=== PATIENT | female | born 1955 | race Caucasian/White ===

== ENCOUNTER 2017-07-13 05:31 | Inpatient (IN) | payer OTHER ==
--- NOTE | 2017-07-06 14:59 | PCM.ANEPRE ---
Anesthesia Pre-Op Review Reason for Review: GENO + 6/8 Anesthesia Recommendations: Proceed with Procedure Additional Comments Patient with STOP-BANG of 6. Scheduled for sleep study but planning to reschedule due to conflict with surgery. Likely okay to proceed but will need evaluation on day of surgery and will possibly need to be monitored overnight in hospital. Will use GENO protocol. Chart Reviewed by: Bladimir Mccullough MD Jul 06, 2017 14:59
[~2017-07-13] VITALS: Ht 157.5 cm; Wt 97.0 kg
[2017-07-13] VITALS (17 sets, daily range): BP systolic 103–176; BP diastolic 60–109; PULSE 66–90; RESP 9–20; O2SAT 94–100
[~2017-07-13 05:31] MED LIST: DICL100G26 TOPICAL; FLUO15CR33 TOPICAL; LISI-567 PO; Lactated Ringer's 1,000 ML IV ONE; NAPR375T4 PO; OMEP40CA36 PO; TRAM50TA2 PO; TRET20CR14 TP
[2017-07-13] MEDS ORDERED: CeFAZolin 2 Gm/50 mL D5W Duplex Bag IV ONE (05:45)
[2017-07-13] MEDS ORDERED: IBUP100T47 PO (05:55)
[2017-07-13] MEDS ORDERED: Vancomycin Inj 1,250 MG in 0.9% Sodium Chloride 250 ML IV ONE ×2 (06:00→16:30)
[2017-07-13] MEDS ORDERED: Bupivacaine Liposome 1.3% 20 mL Inj INFILTRATE ONE ×2 (06:00→08:35)
[2017-07-13] MEDS ORDERED: CeFAZolin Inj 2 GM in IV Premix 1 EACH IV ONE (06:00)
[2017-07-13] MEDS ORDERED: Gentamicin 40 mg/mL 2 mL Inj IRRIGATION ONE (08:00)
[2017-07-13] MEDS ORDERED: Lactated Ringer's 500 ML IV PRN (08:16)
[2017-07-13] MEDS ORDERED: Lactated Ringer's 1,000 ML IV SCH (08:16)
--- NOTE | 2017-07-13 08:16 | PCM.HPANE ---
Patient Data Date of Service: Jul 13, 2017 (0710) Surgeon Admitting Provider: Attending Provider:Keaton Cerrato MD Primary Care Physician:Pierce Marcelo MD Other Provider:Kurt Martin Anesthesia Reason for Visit Right Knee Arthritis Ht/WT & BMI Height (Feet): 5 Height (Inches): 2.00 Weight (Kilograms): 90.3 Body Mass Index 36.00 Allergies Coded Allergies: No Known Allergies (Unverified , 07/03/17) Past Anesthesia History Anesthesia History: Denies:: Abnormal Airway, Anesthesia Reactions (spinal only with childbirth), Difficult Intubation, Fam Anesthesia Reaction, Fam Malignant Hypertherm, Malignant Hyperthermia Diabetes History Hx Diabetes?: No MRSA MRSA: No Medications Hypertension Medication: Yes Home Meds Incl Beta Axel: No Reported Medications Ibuprofen (Advil)100 Mg [id number] Mg PO 07/13/17 Tretinoin 20 Gm Cream..g.20 Gm TP HS 07/03/17 Tramadol 50 Mg [id number] Mg PO Q4H PRN For Pain Ref 0 07/03/17 Omeprazole 40 Mg Capsule.dr40 Mg PO DAILY Ref 0 07/03/17 Naproxen 375 Mg Tablet.dr375 Mg PO BID PRN For Pain Ref 0 07/03/17 Lisinopril 20 Mg [id number] Mg PO DAILY 30 Days Ref 0 07/03/17 Fluocinolone 0.01% Cream 60 Applic/15 Gm Cream1 Applic TOPICAL BID Ref 0 07/03/17 Diclofenac Gel 100 Gm Tube1 Applic TOPICAL QID PRN For Pain #1 TUBE 07/03/17 History History of ENT Problems?: No HEENT History: Denies:: Abnormal Airway Cataracts Difficult Intubation Dysphagia Glaucoma Hearing Problem Sinus Problem TMJ Denture Type: Partial- Upper Teeth Condition: Within Normal Limits Hx of Heart Problems?: Yes Cardiovascular History: Positive for:: Hypertension Denies:: AICD Atrial Fibrillation Cardiac Surgery Chest Pain Congestive Heart Failure Edema Heart Murmur Irregular Heartbeat Pacemaker Peripheral Vascular Rheumatic Fever Hx of Respiratory Problem?: No Respiratory History: Denies:: Asthma COPD Emphysema Pneumonia (one occasion - two years ) Tuberculosis Use of C-PAP Machine (GENO+, sleep study not yet scheduled ) Hx Neurologic Problems?: No Neurological History: Denies:: Alzheimer's Disease CVA Headaches Multiple Sclerosis Parkinson's Disease Seizures Hx of GI Problems?: Yes Hx of Problems?: No Genitourinary History: Denies:: Kidney Stones Urinary Tract Infection Female Hx: Denies:: Currently (post menopausal ) Problems with Breasts? Skin History: Denies:: History Skin Disorders? Pressure Ulcers Hx Musculoskeletal Problems?: Yes Musculoskeletal History: Positive for:: Degenerative Joint Osteoarthritis Denies:: Back Injury Fibromyalgia Myasthenia Gravis Systemic Lupus Hx of Psycho/Social Problems?: No Psycho Social History: Denies:: Anxiety Hx Depression Hx Surgeries?: No Hx Any Other Health Problems?: Yes Other History: Denies:: Cancer Thyroid Disease History Blood Transfusions: Positive for:: Accept Blood Products? Denies:: Blood Transfusions Hx Diabetes: No Hx Alcohol Use: NoHx Substance Use: NoHave You Smoked inLast 12 mo: No Stop/Bang S-Snoring: Do You Snore Loudly: Yes T-Tired: feel tired, fatigued: Yes O-Obsered: Observed not breath: Yes P-Blood Pressure: treated: Yes B- Body Mass Index > 35 kg/m2: Yes A- Age over 50: Yes N- Neck Large Circumference: No G- Gender Male: No GENO Total Score: 6 Risk Assessment Category Category 1A: Patient has history of documented sleep apnea, and HAS NOT received any narcotic, sedative or anesthesia administration during this stay. Category 1B: Patient has history of documented sleep apnea, and HAS received any narcotic , sedative or anesthesia administration during this stay Category 2: Patient has SUSPECTED Obstructive Sleep Apnea, and HAS received any narcotic , sedative or anesthesia administration during this stay. Category 3: Patient has SUSPECTED Obstructive Sleep Apnea and HAS NOT received narcotic, sedative or anesthesia administration during this stay. Category 4: Outpatient in Procedural Areas with known sleep apnea or who screen positive for High Risk via the STOP/BANG questionnaire. Exam Exam Vital Signs Vital Signs Date Time Temp Pulse Resp B/P Pulse Ox O2 Delivery O2 Flow Rate FiO2 07/13/17 06:10 36.8 88 18 176/109 95 Room Air General Appearance: Alert, Oriented X3, Cooperative, No Acute Distress HEENT/AIRWAY: MP 3 Lungs: Clear to Auscultation Heart: Exam Unremarkable Meds/Labs/Diagnostics Admission Meds Current Medications Vancomycin HCl 1250 mg/Sodium Chloride 250 ml @ 166.667 mls/hr PREOP ONCE IV Last administered on 07/13/17t 06:13; Start 07/13/17 at 06:00; Stop 07/13/17 at 07:29; Status DC Lactated Ringer's (Lr) 1,000 ml @ 120 mls/hr Q8H20M ONCE IV Last administered on 07/13/17t 05:38; Start 07/13/17 at 05:00; Stop 07/13/17 at 13:19 Plan Impression Patient chart reviewed, patient interviewed and anesthestic plan with risks, benefits, and alternatives discussed, and informed consent obtained. ASA Physical Status: ASA2 Mod Systemic Disease Anesthetic Plan: Regional Block, SAB Bene/Risks/Altern/Consents: Yes HP Complete Prior to Induction: Yes Isma Resendez MD Jul 13, 2017 08:16
[2017-07-13] MEDS ORDERED: Phenylephrine 10,000 mCg/mL Inj IVPUSH PRN (08:20)
[2017-07-13] MEDS ORDERED: Dexamethasone 4 mg/mL Inj IVPUSH PRN (08:20)
[2017-07-13] MEDS ORDERED: fentaNYL-PF 50 mCg/mL 2 mL Inj IVPUSH PRN (08:20)
[2017-07-13] MEDS ORDERED: EPHEDrine Sulfate 50 mg/mL Inj IVPUSH PRN (08:20)
[2017-07-13] MEDS ORDERED: Ondansetron 2 mg/mL 2 mL Inj IVPUSH PRN (08:20)
[2017-07-13] MEDS ORDERED: Atropine 0.4 mg/mL Inj IVPUSH PRN (08:20)
[2017-07-13] MEDS ORDERED: HYDROmorphone 1 mg/mL Inj IVPUSH PRN (08:20)
[2017-07-13] MEDS ORDERED: MetoCLOpramide 5 mg/mL 2 mL Inj IVPUSH PRN (08:20)
[2017-07-13] MEDS ORDERED: Bupivacaine-MPF 0.5% W/EPI 30 mL Inj INFILTRATE ONE (08:24)
[2017-07-13] MEDS ORDERED: Lactated Ringer's 1,000 ML IV ONE (08:59)
[2017-07-13] MEDS ORDERED: Vancomycin Dose per Pharmacist XX ONE (09:00)
[2017-07-13] MEDS ORDERED: HYDROcodone-APAP 5-325 mg Tablet PO PRN (09:00)
[2017-07-13] MEDS ORDERED: fentaNYL-PF 50 mCg/mL 2 mL Inj ONE (09:37)
[2017-07-13] MEDS ORDERED: Propofol 10,000 mCg/mL 20 mL Inj ONE (09:37)
[2017-07-13] MEDS ORDERED: Phenylephrine/NS 100 mCg/mL 10 mL Syringe IVPUSH ONE (09:37)
[2017-07-13] MEDS ORDERED: Bupivacaine-MPF 0.75% 30 mL Inj ONE (09:37)
[2017-07-13] MEDS ORDERED: EPHEDrine/NS 5 mg/mL 5 mL Syringe ONE (09:37)
--- NOTE | 2017-07-13 10:07 | PCM.ANEP1 ---
Post Anesthesia PACU Phase 1 Assessment Vital Signs Vital Signs Date Time Temp Pulse Resp B/P Pulse Ox O2 Delivery O2 Flow Rate FiO2 07/13/17 10:00 74 13 117/63 98 Nasal Cannula 2 07/13/17 09:45 72 9 113/66 98 Nasal Cannula 2 07/13/17 09:35 36.1 81 15 119/64 97 Room Air 07/13/17 09:30 78 15 103/60 100 Simple Mask 8 07/13/17 09:25 89 14 112/66 100 Simple Mask 8 07/13/17 09:24 11 94 07/13/17 09:21 36.5 90 11 111/62 100 Simple Mask 8 07/13/17 06:10 36.8 88 18 176/109 95 Room Air Anesthetic Administered: Regional Block, SAB Level of Alertness: Awake, talking Pain: No Nausea or Vomiting: No CV Function & Hydration Stable: Yes Airway Device: Oxygen Delivery: Simple Mask Lungs: Clear to Auscultation Dermatome Level: T2 ([place]) PACU Phase 2 Assessment Complications: No Patient Instructions Provided: N/A Isma Resendez MD Jul 13, 2017 10:07
--- NOTE | 2017-07-13 12:23 | NUR ---
Post op Transfer to [facility] room 1027 from PACU at 11:15 via bed. Report received from Kaz. Pt alert and oriented, sats upper 90s on 2L nc. Numb from upper thighs down. R luz CDI. Toes pink and warm, brisk cap refill. Denies pain and nausea, tolerates water. IVF infusing.
--- NOTE | 2017-07-13 13:00 | DRSVH ---
PROCEDURE: X-RAY RIGHT KNEE, ONE OR TWO VIEWS ([id number]) INDICATIONS: CHECK ALIGNMENT TECHNIQUE: 3 (s) of the knee acquired. COMPARISON: None. FINDINGS: Bones: Patient is status post knee joint arthroplasty. Hardware components are in expected position s. Visualized bony structures are intact. Soft tissues: Overlying postoperative changes are noted. IMPRESSION: Normal alignment after right total knee arthroplasty. A surgical drain overlies the oper ative bed. Dictated by: Deni Hobson M.D. on 07/13/2017 at 12:58 Approved by: Deni Hobson M.D. on 07/13/2017 at 12:59
--- NOTE | 2017-07-13 15:31 | NUR ---
Evaluation completed. Please go to "Notes" then click on "Assessments and Notes" (bottom left corner of screen). Then select appropriate discipline tab on top of screen.
--- NOTE | 2017-07-13 16:23 | NUR ---
Activity Up to BS, knee buckled during transfer. 3 person assist back to bed from BSC. Pt agrees to use bedpan/bedrest until physical therapy sees her again tomorrow.
[2017-07-13] MEDS: oxyCODONE-Acetamin 5-325 mg Tablet PO PRN ×2 (17:57→23:58)
[2017-07-13] MEDS: CeFAZolin Inj 2 GM in IV Premix 1 EACH IV SCH (18:18)
[2017-07-14] VITALS (9 sets, daily range): BP systolic 121–185; BP diastolic 74–120; PULSE 69–85; RESP 16–20; O2SAT 93–99
[2017-07-14] MEDS ORDERED: 0.9% Sodium Chloride 250 ML ONE (01:08)
[2017-07-14] MEDS: CeFAZolin Inj 2 GM in IV Premix 1 EACH IV SCH (02:27)
--- NOTE | 2017-07-14 04:24 | OP ---
[address] [address] OPERATIVE REPORT PATIENT: CESAR GUEVARA : 1955 MR#: [id number] ADMIT: 07/13/2017 JOB ID: [id number] DATE OF SURGERY: 07/13/2017 PREOPERATIVE DIAGNOSIS(ES): Advanced osteoarthritis, right knee. POSTOPERATIVE DIAGNOSIS(ES): Advanced osteoarthritis, right knee. PROCEDURE: Right total knee replacement. SURGEON: Keaton Cerrato MD FOOD PRESERVATION SCIENTIST: Xenia Liu PA-C. Equities Analyst required due to the major complexity of the operation. INDICATIONS: This patient has severe osteoarthritis with significant limitation of symptoms uncontrolled by conservative treatment. PROCEDURE: The patient was prepped and draped in the usual sterile fashion. An anteromedial approach made to the knee and the patella was subluxed laterally, cut transversely, sized to a 29. Drill holes were made. A patellar protection plate utilized. Drill hole placed in the distal femur 5 degree valgus distal femoral cut was made. The femur was sized to a 6 chamfer block fixed in appropriate position. Rotation, drill holes, and chamfer cuts were made. Tibia was cut with the extramedullary tool sized to an E. Trial reduction was performed. A 10 mm polyethylene was chosen. Excellent alignment, soft tissue tracking was achieved with this. All meniscal tissue and osteophytes were removed. Pressurized lavage was followed by pressurized cementation. Excess cement was removed during the curing process. Final construct was assembled. Deep closure over a Hemovac drain with #2 Quill deep followed by 2-0 Vicryl, 3-0, and a 4-0 intracuticular stitch. Patient tolerated procedure well. There were no complications.
[2017-07-14] MEDS: oxyCODONE-Acetamin 5-325 mg Tablet PO PRN ×5 (04:36→21:19)
--- NOTE | 2017-07-14 05:26 | NUR ---
HTN / mobility B/P increased through night, pt feels asymptomatic; am dose of Lisinopril given early per pt request. Day shift will recheck and follow up with Md if needed. Pain well controlled with block and prn Percocet. Pt has not been out of bed tonight related to knee buckling yesterday, PT to follow. Hourly rounding ongoing.
[2017-07-14] MEDS: Pantoprazole 40 mg ER24 Tablet PO SCH (06:15)
--- NOTE | 2017-07-14 09:08 | PCM.PNORTH ---
Subjective Date of Service: Jul 14, 2017 Visit Information: Reason for Visit Right Knee Arthritis Surgery/Surgery Date R TKA 07/13/17 Post-Op Day # 1 Date of Admission: Jul 13, 2017 at 11:17 Hospital Day # Subjective Patient states she is not having pain and expresses that she is very anxious about this. She is worried she will not be able to support herself as she was not able to weightbear on the affected extremity yesterday. She also expresses concerns about a sudden onset of pain when the block wears off. Patient is on scheduled pain medications to avoid a sudden flare up on pain. Postop General: No Complaints, No Shortness of Breath, No Chest Pain, Good Appetite Pain Management: PO Objective Exam Objective Patient sitting up in bed Vital Signs and I/O Vital Sign - Last Date Time Temp Pulse Resp B/P Pulse Ox O2 Delivery O2 Flow Rate FiO2 07/14/17 08:38 36.7 82 17 185/120 96 Room Air 07/14/17 06:15 1.00 07/13/17 12:28 99 Intake and Output 07/13/17 07/13/17 07/14/17 Cumulative From/Thru 15:00 23:00 07:00 07/03/17 16:52 - 07/14/17 06:15 Intake Total 660 ml 1318 ml 1047 ml 4275 ml Output Total 55 ml 555 ml 490 ml 1100 ml Balance 605 ml 763 ml 557 ml 3175 ml Intake Oral 500 ml 450 ml 950 ml IV Total 660 ml 818 ml 597 ml 3325 ml Output Urine Total 550 ml 470 ml 1020 ml Drainage Total 5 ml 20 ml 25 ml Estimated Blood Loss 55 ml 55 ml # Bowel Movements 0 0 General Appearance: Alert, Oriented X3, Cooperative, No Acute Distress Extremities: No Compartment Syndrom Noted, Thigh & Calf Soft/Nontender Postop Sensory Motor: Distal Motor Intact, Movement in Toes SURGICAL WOUND : Wound Location/Description Perioperative dressings c/d/i Drain Location Body Site: Knee Incision General Appearance: No Direct Observation Wound Drainage Type: Hemovac Activity: Ambulate with PT (WBAT c FWW) Assessment & Plan Impression POD#1 right total knee arthroplasty Problems: Plan Patient has been hypertensive. She takes lisinopril and received her medication this morning. Will continue to monitor. Weightbearing: Weightbearing as tolerated with a front wheeled walker. DVT prophylaxis: Aspirin 81 mg twice a day 6 weeks Physical therapy for transfers, progressive ambulation, strengthening Wound care: Perioperative dressing will be changed to an island dressing with application of compression stockings tomorrow Analgesia: Continue oral pain management. Discharge plan: Discharge home in 1-2 days. Start outpatient physical therapy next week. Follow-up plan: In 2 weeks at [facility] with SRIRAM for wound check and at [address] Cerrato with x-rays Xenia Liu PA-C Jul 14, 2017 09:08
--- NOTE | 2017-07-14 09:33 | NUR ---
HTN Asymptomatic. PA aware. No new orders at this time.
[2017-07-14] MEDS: hydrOXYzine Pamoate 25 mg Capsule PO PRN ×2 (11:45→16:01)
--- NOTE | 2017-07-14 18:09 | NUR ---
Pain Management Patient pain not controlled with 1 tab percocet following PT and nerve block wearing off, added tramadol then Vistaril. Pain adequately managed with staggered doses of 2 percocet, 1 tramadol, 1 Vistaril. No sleepiness or drowsiness noted patient on continuous pulse ox. Call light within reach, bed in lowest and locked position. Will continue to monitor.
[2017-07-15] MEDS: oxyCODONE-Acetamin 5-325 mg Tablet PO PRN ×4 (03:06→15:45)
--- NOTE | 2017-07-15 03:52 | NUR ---
activity/GENO pt has not been out of bed this shift. she is weary to attempt to get out of bed without PT. she has used a bedpan and is able to lift herself to get on the bedpan and turn herself without assistance. pt has required 2L of 02 via an oxymask to keep her 02 levels greater then 92%. nurse has observed so periods of apnea and pulse ox showed her dropping down into the 70s frequently while sleeping. nurse provided teaching on GENO and risks. pain has been well controlled with percocet and tramadol. pt wanted to hold off on vistaril this shift as she said something was making her feel dizzy and she wanted a trial without the vistaril to determine if it was the cause. pt has complained of no dizziness this shift. bed in low position, call light within reach. care continues.
[2017-07-15 05:26] VITALS: BP 133/75; PULSE 84; RESP 16; O2SAT 99
[2017-07-15] MEDS: Pantoprazole 40 mg ER24 Tablet PO SCH (06:29)
--- NOTE | 2017-07-15 09:21 | NUR ---
Social Work- Screening Data: EMR reviewed. Pt is a 84 year old female admitted for right TKA. Pt is POD 2. Pt's insurance is [facility]. Ortho is primary on pt. Pt's PCP is Pierce Marcelo MD. SW met with pt at bedside, explained d/c planning and SW role. Pt resides in [place] with her adult son. Pt's son Luda Huber, is designated contact center specialist for d/c planning. Pt is Independent at baseline with ADLs and self-care. Pt drives. Pt has no DPOA on file and pt declined updated paperwork-- she will have her sports attorney write up a new DPOA. Pt has a cane and walker for use at home. Pt is likely to progress to d/c home, son to transport via POV. No d/c needs anticipated. SW will continue to follow. Assessment: Pt who is independent at baseline. Plan: Pt likely to progress with PT to be able to d/c home with son to transport via POV. No d/c needs identified at this time. SW will continue to follow. CATHLEEN Rodriguez
[2017-07-15] MEDS: hydrOXYzine Pamoate 25 mg Capsule PO PRN (10:10)
[2017-07-15 12:30] VITALS: BP 102/67; PULSE 95; RESP 18; O2SAT 93
--- NOTE | 2017-07-15 13:14 | PCM.PNORTH ---
Subjective Date of Service: Jul 15, 2017 Visit Information: Reason for Visit Right Knee Arthritis Surgery/Surgery Date R TKA 07/13/17 Post-Op Day # 2 Date of Admission: Jul 13, 2017 at 11:17 Hospital Day # Subjective Patient states she has been very nauseous whenever she takes one of her meds. She does not know which one. When I went over her med list with her, she stated that all of the meds were wrong and she only takes Lisinopril and Advil while at home. Postop General: No Complaints, No Shortness of Breath, No Chest Pain, Good Appetite Pain Management: PO Objective Exam Objective Patient sitting up in bed Vital Signs and I/O Vital Sign - Last Date Time Temp Pulse Resp B/P Pulse Ox O2 Delivery O2 Flow Rate FiO2 07/15/17 05:26 36.4 84 16 133/75 99 OxyMask 2.00 07/13/17 12:28 99 Intake and Output 07/14/17 07/14/17 07/15/17 Cumulative From/Thru 15:00 23:00 07:00 07/03/17 16:52 - 07/15/17 03:16 Intake Total 720 ml 4995 ml Output Total 430 ml 1530 ml Balance 290 ml 3465 ml Intake Oral 720 ml 1670 ml IV Total 3325 ml Output Urine Total 400 ml 1420 ml Drainage Total 30 ml 55 ml Estimated Blood Loss 55 ml # Bowel Movements 0 0 General Appearance: Alert, Oriented X3, Cooperative, No Acute Distress Extremities: No Compartment Syndrom Noted, Thigh & Calf Soft/Nontender Postop Sensory Motor: Distal Motor Intact, Movement in Toes, Distal Sensation Intact, NVI Distally SURGICAL WOUND : Drain Location Body Site: Knee Incision General Appearance: No Direct Observation Activity: Ambulate with PT (WBAT c FWW) Assessment & Plan Impression POD#2 Right total knee arthroplasty Problems: Plan Weightbearing: Weightbearing as tolerated with a front wheeled walker. DVT prophylaxis: Aspirin 81 mg twice a day 6 weeks Physical therapy for transfers, progressive ambulation, strengthening Wound care: Please remove luz and a cotton padding. Apply an island dressing over the incision. Pull hemovac drain if present and apply compressive bandage if needed. Pull on compression stockings bilaterally. Analgesia: Percocet 5/325mg for pain. Vistaril (hydroxyzine pamoate) 25mg for discomfort/spasms. Discontinue Tramadol as she believes this is causing her nausea Discharge plan: Discharge home in today. Start outpatient physical therapy next week. Follow-up plan: In 2 weeks at [facility] with SRIRAM for wound check and at [address] Cerrato with x-rays Xenia Liu PA-C Jul 15, 2017 11:05
--- NOTE | 2017-07-15 13:16 | PCM.DIORTH ---
Ortho Discharge Instruction Date of Service: Jul 15, 2017 Dates of Hospitalization Date of Hospital Admission Jul 13, 2017 at 11:17 Providers Admitting Physician: Keaton Cerrato MD Primary Care Physician: Pierce Marcelo MD Attending Physician: Keaton Cerrato MD Diet Discharge Diet: No restrictions Activity Discharge Activity-General: Be up and about, Elevate & ice extremity, Ice incision 3-5 time/day for 20min Right Lower Extremity: Weight Bearing as tolerated Discharge Assist Device: Front Wheeled Walker Dressing and Incisional Care Discharge Dressing Care: Allow Steri Stripes to fall off Discharge Hygiene: May shower (do not get dressings wet), DO NOT soak incision under water, NO bathtub, hot tub or whirlpool Additional Instructions Discharge Instructions Weightbearing: Weightbearing as tolerated with a front wheeled walker. DVT prophylaxis: Aspirin 81 mg twice a day 6 weeks Shower instructions: Wrap knee in saran wrap/plastic bag to keep it covered and dry. Do not get dressing wet and if you do remove it. Wound care: Use island dressing provided to you to keep incision covered. Wear compression stockings on both legs until follow up visit. Analgesia: Percocet 5/325mg for pain. Vistaril (hydroxyzine pamoate) 25mg for discomfort/spasms. Discharge plan: Discharge home today. Start outpatient physical therapy next week. Follow-up plan: In [address] [facility] with SRIRAM for wound check and at [address] Cerrato with x-rays Xenia Liu PA-C Jul 15, 2017 13:16
[2017-07-15] MEDS ORDERED: OXYC1TAB24 PO (13:17)
[2017-07-15] MEDS ORDERED: HYDR-3797 PO (13:17)
--- NOTE | 2017-07-15 15:07 | NUR ---
Drain and dressing change Per discussion with PA, luz wrap and cotton removed from leg. Surgical dressing removed and island dressing placed over incision leaving steri strips in place. Moderate old serosang drainage on old dressing. hemovac removed as ordered. serosang output. Covered with gauze and tegaderm. bilat compression hose applied. pt tolerated well.
--- NOTE | 2017-07-15 17:44 | NUR ---
Discharge Pt discharged with son @ 1548. All info given and scripts given for perc, vistaril, aspirin, and colace. All questions answered and phone numbers put in packet if she has any questions when she gets home. Wheeled out by BACK UP WORKER without issues.
--- NOTE | 2017-07-19 20:08 | PCM.DC.ORT ---
Discharge Summary Date of Service: Jul 19, 2017 Date of Hospital Admission: Jul 13, 2017 at 11:17 Date of Surgery: Jul 13, 2017 Date of Discharge: Jul 15, 2017 Reason for Hospitalization: Right knee osteoarthritis Procedures Performed: Right knee arthroplasty Hospital Course: The patient was admitted to the hospital on 07/13/2017 and underwent the above procedure. Antibiotic prophylaxis consisting of Ancef and vancomycin. The surgeon was Dr. Cerrato. Patient tolerated the procedure well and was transferred to recovery room in stable condition. Patient had physical therapy to work on ambulation and transfers. Weightbearing as tolerated with walker. Pain was managed with Dilaudid, Percocet, Vistaril, Toradol. DVT prophylaxis: Aspirin and SCDs. Hospital course was uncomplicated. Patient was able to perform adequately enough to be discharged home on postop day 2. Follow-up: at [facility] 2 weeks postop for wound check and at [address] Cerrato with x-ray. Discharge Instructions: Weightbearing: Weightbearing as tolerated with a front wheeled walker. DVT prophylaxis: Aspirin 81 mg twice a day 6 weeks Shower instructions: Wrap your knee with saran wrap and /or use a garbage bag to keep the dressing dry. Do not get dressing or incision wet. Wound care: Use island dressing provided to you to keep incision covered. Wear compression stockings on both legs until follow up visit. Analgesia: Percocet 5/325mg for pain. Vistaril (hydroxyzine pamoate) 25mg for discomfort/spasms. Discharge plan: Discharge home today. Start outpatient physical therapy next week. Follow-up plan: In 2 weeks at [facility] with PA for wound check and at [address] Cerrato with x-rays Diclofenac Gel (Diclofenac Gel) 100 Gm Tube 1 APPLIC TOPICAL QID PRN PRN For Pain Fluocinolone 0.01% Cream (Fluocinolone 0.01% Cream) 60 Applic/15 Gm Cream 1 APPLIC TOPICAL BID Hydroxyzine Pamoate (HydrOXYzine Pamoate) 25 Mg Capsule 25 MG PO Q4H PRN PRN For Itching Ibuprofen (Advil) 100 Mg Tablet 100 MG PO Lisinopril (Lisinopril) 20 Mg Tablet 20 MG PO DAILY Omeprazole (Omeprazole) 40 Mg Capsule.dr 40 MG PO DAILY Tretinoin (Tretinoin) 20 Gm Cream..g. 20 GM TP HS oxyCODONE-Acetaminophen 5-325 mg (oxyCODONE-Acetaminophen 5-325 mg) 1 Each Tablet 1-2 TAB PO Q4H PRN PRN For Severe Pain Xenia Liu PA-C Jul 19, 2017 20:08
== END 2017-07-15 15:47 | disposition home or self-care (01) | DRG 470 ==
LOC: SAS 05:31 → OSC 11:17
PROVIDERS: ADMIT Orthopaedic Surgery; ATTEND Orthopaedic Surgery
PROC: 0SRC0J9 Replacement of Right Knee Joint with Synthetic Substitute, Cemented, Open Approach (ICD-10-PCS; principal; 2017-07-13 07:30)
DX: M17.11 Unilateral primary osteoarthritis, right knee (principal); I10 Essential (primary) hypertension